=== PATIENT | female | born 1955 | race African-American/Black ===

== ENCOUNTER 2017-04-19 01:49 | Emergency (ER) | payer MEDICARE ==
[2012-07-08 09:00] VITALS: BMI 17.3
== END 2017-04-19 04:07 | disposition home or self-care (01) ==
LOC: D.ER 01:49
DX: S16.1XXA Strain of muscle, fascia and tendon at neck level, initial encounter (principal); V43.52XA Car driver injured in collision with other type car in traffic accident, initial encounter; Y93.89 Activity, other specified; Y92.410 Unspecified street and highway as the place of occurrence of the external cause; S40.012A Contusion of left shoulder, initial encounter; S70.02XA Contusion of left hip, initial encounter; S20.212A Contusion of left front wall of thorax, initial encounter